=== PATIENT | male | born 1955 | race Caucasian/White ===

== ENCOUNTER 2017-05-18 21:10 | Observation (INO) | payer OTHER ==
[2017-05-18 21:48] VITALS: BMI 37.2
--- NOTE | 2017-05-18 21:52 | PDOC ---
History of Present Illness - History of Present Illness Initial Comments: 05/18/17 21:52 The patient is a 61 year old male, with a significant past medical history of hypertension (40 lisinopril and 20 hydrochlorothiazide), Afib s/p ablation, who presents to the emergency department with chest pain, shortness of breath, and associated neck and teeth pain all day today. He states he woke up this morning with the chest pain. He states he only has the chest pain when he takes a deep breath or with pressure. He states he was very gassy today and reports burping, but denies experiencing heartburn sensation. He states he did carry up some things from his basement yesterday and may have pulled something. He reports driving to and from [place] twice a month. He states he believes his last stress test was a year ago and was normal. Secondarily, he reports eating a lot yesterday for passover. He took 2 aspiring at noon and again at 6PM. He also reportedly took Tylenol which did not alleviate He denies headache and dizziness. He denies fever, chills, nausea, vomit, diarrhea and constipation. He denies dysuria, frequency, urgency and hematuria. Allergies: metoprolol Family Hx: PR (brother age 64) PCP: Dr. Jean Mail Order Clerk: Dr. Philip <Malina Gallegos - Last Filed: 05/18/17 21:52> - General History Source: Patient Exam Limitations: No Limitations <Lady Carrion - Last Filed: 05/19/17 00:29> - General Chief Complaint: Chest Pain Stated Complaint: CHEST PAIN Past History <Malina Gallegos - Last Filed: 05/18/17 21:52> - Past Medical History Anemia: No Asthma: No Cancer: No Cardiac Disorders: Yes (MILD PULMONIC STENOSIS) CVA: No COPD: No CHF: No Dementia: No Diabetes: No GI Disorders: Yes (DIVERTICULITIS, INFREQUENT GERD) Disorders: No HTN: Yes Hypercholesterolemia: No Liver Disease: No Seizures: No Thyroid Disease: No - Surgical History Abdominal Surgery: No Appendectomy: No Cardiac Surgery: Yes (CARDIAC ABLATION) Cholecystectomy: No Lung Surgery: No Neurologic Surgery: No Orthopedic Surgery: No - Suicide/Smoking/Psychosocial Hx Smoking Status: Yes Smoking History: Former smoker Have you smoked in the past 12 months: No Number of Cigarettes Smoked Daily: 0 If you are a former smoker, when did you quit?: 1989 Information on smoking cessation initiated: No Hx Alcohol Use: Yes (RARE) Drug/Substance Use Hx: No Substance Use Type: None Hx Substance Use Treatment: No <Lady Carrion - Last Filed: 05/19/17 00:29> - Past Medical History Allergies/Adverse Reactions: Allergies Allergy/AdvReac Type Severity Reaction Status Date / Time metoprolol AdvReac Intermediate sluggish Unverified 08/16/15 13:15 Home Medications: Ambulatory Orders Aspirin [Aspir 81] 162 mg PO ASDIR 01/12/14 Cholecalciferol (Vitamin D3) [Vitamin D3] 1,000 unit PO DAILY 05/18/17 Magnesium Oxide [Magnesium] 400 mg PO DAILY 05/18/17 [place]-3/Dha/Epa/Fish Oil [Fish Oil Conc 1,000 mg Softgel] 1,000 mg PO DAILY Potassium Chloride [K-Dur -] 10 meq PO DAILY 05/18/17 Vitamin E 05/18/17 Review of Systems - Review of Systems Able to Perform ROS?: Yes Comments:: 05/18/17 21:53 GENERAL/CONSTITUTIONAL: No fever or chills. No weakness. HEAD, EYES, EARS, NOSE AND THROAT: (+) teeth pain. No change in vision. No ear pain or discharge. No sore throat. CARDIOVASCULAR: (+) pleuritic chest pain and shortness of breath. RESPIRATORY: No cough, wheezing, or hemoptysis. GASTROINTESTINAL: No nausea, vomiting, diarrhea or constipation. GENITOURINARY: No dysuria, frequency, or change in urination. MUSCULOSKELETAL: (+) neck pain. No joint or muscle swelling or pain. No back pain. SKIN: No rash NEUROLOGIC: No headache, vertigo, loss of consciousness, or change in strength/ sensation. ENDOCRINE: No increased thirst. No abnormal weight change. HEMATOLOGIC/LYMPHATIC: No anemia, easy bleeding, or history of blood clots. ALLERGIC/IMMUNOLOGIC: No hives or skin allergy. <Malina Gallegos - Last Filed: 05/18/17 21:52> *Physical Exam - Vital Signs Last Vital Signs Temp Pulse Resp BP Pulse Ox 99.1 F 88 19 170/90 95 05/18/17 21:11 05/18/17 21:11 05/18/17 21:11 05/18/17 21:11 05/18/17 21:11 - Physical Exam Comments: 05/18/17 21:53 GENERAL: Awake, alert, and fully oriented, in no acute distress HEAD: No signs of trauma EYES: PERRLA, EOMI, sclera anicteric, conjunctiva clear ENT: Auricles normal inspection, hearing grossly normal, nares patent, oropharynx clear without exudates. Moist mucosa NECK: Normal ROM, supple, no lymphadenopathy, JVD, or masses LUNGS: Breath sounds equal, clear to auscultation bilaterally. No wheezes, and no crackles HEART: Regular rate and rhythm, normal S1 and S2, no murmurs, rubs or gallops CHEST: (+) reproducible chest wall tenderness on palpation ABDOMEN: Soft, nontender, normoactive bowel sounds. No guarding, no rebound. No masses EXTREMITIES: Normal range of motion, no edema. No clubbing or cyanosis. No cords, erythema, or tenderness NEUROLOGICAL: Cranial nerves II through XII grossly intact. Normal speech, normal gait SKIN: Warm, Dry, normal turgor, no rashes or lesions noted. <Malina Gallegos - Last Filed: 05/18/17 21:52> - Vital Signs Last Vital Signs Temp Pulse Resp BP Pulse Ox 99.1 F 88 19 170/90 95 05/18/17 21:11 05/18/17 21:11 05/18/17 21:11 05/18/17 21:11 05/18/17 21:11 <Lady Carrion - Last Filed: 05/19/17 00:29> Heart Score/ECG Review - ECG Intrepretation Comment:: 05/18/17 21:53 EKG was read by Dr. Carrion at 21:19 Impression: Normal sinus rhythm Vent rate: 88 bpm FL Interval: 184 ms QTc: 438 ms <Malina Gallegos - Last Filed: 05/18/17 21:52> #1 General ECG Interpretation: Sinus Rhythm, Normal Rate (88), Normal Intervals, No acute ischemic changes - ECG Intrepretation Rhythm: Regular Rhythm <Lady Carrion - Last Filed: 05/19/17 00:29> ED Treatment Course - LABORATORY CBC & Chemistry Diagram: 05/18/17 22:45 05/18/17 22:45 - RADIOLOGY Radiology Studies Ordered: Category Date Time Status CHEST PA & LAT [RAD] Stat Radiology 05/18/17 21:48 Ordered <Lady Carrion - Last Filed: 05/19/17 00:29> Medical Decision Making - Medical Decision Making 05/18/17 21:50 61 yo M h/o htn, afib s/p ablation here with chest pain, radiating to neck. plueritic in nature, no assoc sob, no leg swelling. no h/o pe or dvt. does drive to [place] twice monthly 6 hrs. family h/o brother mi in 60's, pt not a smoker. had a normal stress test reportedly one year ago. on exam awake alert normal cardiac and lung exams. ext no edema no calf tenderness. differential: chest wall pain, mi acs, pe, pneumonia, . plan cxr labs ekg. asa taken at home. pt will require obs. d dimer r/o pe. <Lady Carrion - Last Filed: 05/19/17 00:29> *DC/Admit/Observation/Transfer - Attestations Scribe Attestion: 05/18/17 21:53 Documentation prepared by Malina Gallegos, acting as medical technologist clinical for Lady Carrion MD, <Malina Gallegos - Last Filed: 05/18/17 21:52> - Discharge Dispostion Admit: Yes <Lady Carrion - Last Filed: 05/19/17 00:29> Diagnosis at time of Disposition: Chest pain - Discharge Dispostion Condition at time of disposition: Good - Referrals Referrals: Dom Jean MD [Primary Care Provider] - - Patient Instructions - Post Discharge Activity
[2017-05-18 23:03] LABS: BASO % 1.7 % (0-2.0); EOS % 1.2 % (0-4.5); HEMATOCRIT 48.1 % (35.4-49); HEMOGLOBIN 16.8 GM/dl (11.7-16.9); LYMPH % 23.1 % (8-40); MCH 29.5 pg (25.7-33.7); MCHC 34.9 g/dl (32.0-35.9); MEAN CELL VOLUME 84.5 fl (80-96); MEAN PLT VOLUME 7.9 fl (7.5-11.1); MONO % 9.2 % (3.8-10.2); NEUT % 64.8 % (42.8-82.8); PLATELET COUNT 215 K/MM3 (134-434); RBC 5.69 M/mm3 (4.00-5.60); RDW 12.3 % (11.9-15.9); WHITE BLOOD COUNT 7.6 K/mm3 (4.0-10.8)
[2017-05-18 23:11] LABS: INR 1.13 (0.82-1.09); PROTHROMBIN TIME (PATIENT) 12.6 SEC (10.2-13.0)
[2017-05-18 23:18] LABS: ALBUMIN 3.8 g/dl (3.5-5.0); ALK PHOS 51 U/L (32-92); ANION GAP 7 (8-16); BILIRUBIN,TOTAL 1.1 mg/dl (0.2-1.0); BLOOD UREA NITROGEN 14 mg/dl (7-18); CALCIUM 8.8 mg/dl (8.4-10.2); CHLORIDE 99 mmol/L (98-107); CO2 28 mmol/L (22-28); CREATININE 0.8 mg/dl (0.6-1.3); GLUCOSE,RANDOM 94 mg/dl (74-106); POTASSIUM 3.6 mmol/L (3.5-5.1); SGOT/AST 20 U/L (10-42); SGPT/ALT 26 U/L (10-40); SODIUM 134 mmol/L (136-145); TOT PROT 6.8 g/dl (6.4-8.3)
[2017-05-18 23:45] LABS: D-DIMER < 208 ng/ml (0-500)
[2017-05-19] MEDS ORDERED: HYDROCHLOROTHIAZIDE 25 MG TABLET (FP) PO ONE (01:46)
[2017-05-19] MEDS ORDERED: LISINOPRIL 20 MG TABLET (FP) PO ONE (01:46)
[2017-05-19] MEDS ORDERED: ACETAMINOPHEN 325 MG TABLET (FP) PO PRN ×2 (06:34→15:34)
[2017-05-19 06:47] VITALS: TEMP 99.4
[2017-05-19 09:42] LABS: BASO % 0.3 % (0-2.0); EOS % 0.3 % (0-4.5); HEMATOCRIT 45.8 % (35.4-49); HEMOGLOBIN 16.1 GM/dl (11.7-16.9); MCH 30.1 pg (25.7-33.7); MCHC 35.2 g/dl (32.0-35.9); MEAN CELL VOLUME 85.5 fl (80-96); MEAN PLT VOLUME 8.4 fl (7.5-11.1); MONO % 9.9 % (3.8-10.2); NEUT % 73.5 % (42.8-82.8); PLATELET COUNT 194 K/MM3 (134-434); RBC 5.36 M/mm3 (4.00-5.60); RDW 12.4 % (11.9-15.9); WHITE BLOOD COUNT 8.2 K/mm3 (4.0-10.8)
[2017-05-19] MEDS ORDERED: POTASSIUM CHLORIDE TABS 10 MEQ TABLET.ER (FP) PO SCH (10:00)
[2017-05-19] MEDS ORDERED: CHOLECALCIFEROL (VITAMIN D3) 1,000 UNIT TABLET (FP) PO SCH (10:00)
[2017-05-19] MEDS ORDERED: ASPIRIN 81 MG CHEWABLE TABLETS PO SCH (10:00)
[2017-05-19] MEDS ORDERED: MAGNESIUM OXIDE 400 MG TABLET (FP) PO SCH (10:00)
[2017-05-19 10:17] LABS: ANION GAP 8 (8-16); BLOOD UREA NITROGEN 12 mg/dl (7-18); CALCIUM 8.9 mg/dl (8.4-10.2); CHLORIDE 100 mmol/L (98-107); CO2 27 mmol/L (22-28); CREATININE 0.7 mg/dl (0.6-1.3); GLUCOSE,RANDOM 123 mg/dl (74-106); POTASSIUM 3.4 mmol/L (3.5-5.1); SODIUM 135 mmol/L (136-145)
[2017-05-19 10:23] LABS: MAGNESIUM 1.6 mg/dL (1.8-2.4); PHOSPHOROUS 2.8 mg/dl (2.5-4.6)
[2017-05-19 14:47] VITALS: BP 154/80; PULSE 82
[2017-05-19] MEDS ORDERED: MAGNESIUM SULF 50% (8.12 MEQ/2 ML-1 GM VIAL) IVPB ONE (15:13)
[2017-05-19] MEDS ORDERED: POTASSIUM CHLORIDE ORAL LIQUID 20 MEQ/15 ML PO ONE (15:13)
--- NOTE | 2017-05-19 15:23 | HP ---
Admitting History and Physical - Primary Care Physician PCP: Dom Jean - Admission Chief Complaint: chest pain History of Present Illness: This is a 61 year old male with pmhx a fibs s/p ablation 01/2016 off ac, htn and pulmonic stenosis since childhood. He presented today with chest pain to his left sternum radiating to his left neck, jaw and teeth for 1 day. Chest pain was associated with belching and indigestion, but no heart burn. The chest pain is primarily with deep inspiration. He also notes to carrying a heavy table up the stairs for passover dinner. Last stress with Dr. robbins was 1 year ago and normal. Tylenol helped him earlier, he is now requesting more. Currently, pain is not reproducible on exam, however he continues to have the pain with deep inspiration. Pt denies sob, abd pain, n/v, lower ext swelling, fever, chills. History Source: Patient Limitations to Obtaining History: No Limitations - Past Medical History Cardiovascular: Yes: AFIB, CAD, Other (pulmonic stenosis) - Smoking History Smoking history: Former smoker Have you smoked in the past 12 months: No Aproximately how many cigarettes per day: 0 If you are a former smoker, when did you quit?: 1989 - Alcohol/Substance Use Hx Alcohol Use: Yes (RARE) History of Substance Use: reports: None - Social History Usual Living Arrangement: Yes: Alone ADL: Independent Occupation: teacher History of Recent Travel: No Home Medications - Allergies Allergies/Adverse Reactions: Allergies Allergy/AdvReac Type Severity Reaction Status Date / Time metoprolol AdvReac Intermediate sluggish Unverified 08/16/15 13:15 - Home Medications Home Medications: Ambulatory Orders Aspirin [Aspir 81] 162 mg PO ASDIR 01/12/14 Cholecalciferol (Vitamin D3) [Vitamin D3] 1,000 unit PO DAILY 05/18/17 Magnesium Oxide [Magnesium] 400 mg PO DAILY 05/18/17 [place]-3/Dha/Epa/Fish Oil [Fish Oil Conc 1,000 mg Softgel] 1,000 mg PO DAILY Potassium Chloride [K-Dur -] 10 meq PO DAILY 05/18/17 Vitamin E 05/18/17 Review of Systems - Review of Systems Constitutional: reports: No Symptoms Eyes: reports: No Symptoms HENT: reports: Other (neck/ jaw pain) Neck: reports: No Symptoms Cardiovascular: reports: Chest Pain, Shortness of Breath Respiratory: reports: No Symptoms Gastrointestinal: reports: No Symptoms Genitourinary: reports: No Symptoms Musculoskeletal: reports: No Symptoms Integumentary: reports: No Symptoms Neurological: reports: No Symptoms Endocrine: reports: No Symptoms Hematology/Lymphatic: reports: No Symptoms Psychiatric: reports: No Symptoms Physical Examination Vital Signs: Vital Signs Temperature 99.4 F 05/19/17 14:00 Pulse Rate 82 05/19/17 14:00 Respiratory Rate 19 05/19/17 14:00 Blood Pressure 154/80 05/19/17 14:00 O2 Sat by Pulse Oximetry (%) 95 05/19/17 14:00 Constitutional: Yes: Calm Eyes: Yes: Conjunctiva Clear HENT: Yes: Atraumatic Neck: Yes: Supple Cardiovascular: Yes: Regular Rate and Rhythm, S1, S2 Respiratory: Yes: Regular, CTA Bilaterally Gastrointestinal: Yes: Normal Bowel Sounds, Soft Musculoskeletal: Yes: WNL Extremities: Yes: WNL Edema: No Peripheral Pulses WNL: Yes Neurological: Yes: Alert, Oriented, Cran Nerves II-XII Intact Psychiatric: Yes: Alert, Oriented Labs: CBC, BMP 05/19/17 06:00 05/19/17 06:00 Imaging - Results X-ray: Image Reviewed (my read no effusions) EKG: Report Reviewed Problem List - Problems (1) Chest pain Code(s): R07.9 - CHEST PAIN, UNSPECIFIED Assessment/Plan Assessment: 61 year old male admitted with chest pain Plan: 1. Chest pain - Serial trops x3 negative - EKG NSR - Cardiology consulted 2. HTN - Continue current meds (HCTZ, lisinopril) 3. Electrolytes - Hypokalemia: replete potassium 30meq today - Hypomagnesemia: 2gm IV now 4. s/p ablation 01/2016 - In sinus - No ac Visit type - Emergency Visit Emergency Visit: Yes ED Registration Date: 05/19/17 Care time: The patient presented to the Emergency Department on the above date and was hospitalized for further evaluation of their emergent condition. - New Patient This patient is new to me today: Yes Date on this admission: 05/19/17 - Critical Care Critical Care patient: No Hospitalist Screening - Colonoscopy Questionnaire Colonoscopy Questionnaire: Colonoscopy Questionnaire - Patient: 50 - 75 years old and never had a screening colonoscopy: Unknown History of colon or rectal polyps, or CA: Unknown History of IBD, Crohn's disease or UC: Unknown History of abdominal radiation therapy as a child: Unknown - Relative: 1 with colon or rectal CA, or polyps at age 60 or younger: Unknown Colon or rectal CA diagnosed at age 45 or younger: Unknown Multiple relatives with colon or rectal CA: Unknown - Outcome: Screening Result: Negative Screen
--- NOTE | 2017-05-19 16:01 | CON.CARD ---
Cardiology Consult (text) - Consultation Consultation Note: 61 year old male with pmhx a fibs s/p ablation 01/2016 off ac, htn and pulmonic stenosis since childhood. He presented today with chest pain to his left sternum radiating to his left neck, jaw and teeth for 1 day. Chest pain was associated with belching and indigestion, but no heart burn. The chest pain is primarily with deep inspiration. He also notes to carrying a heavy table up the stairs for passover dinner. Last stress with Dr. robbins was 1 year ago and normal. Tylenol helped him earlier, he is now requesting more. Currently, pain is not reproducible on exam, however he continues to have the pain with deep inspiration. Pt denies sob, abd pain, n/v, lower ext swelling, fever, chills. History Source: Patient Limitations to Obtaining History: No Limitations - Past Medical History Cardiovascular: Yes: AFIB, CAD, Other (pulmonic stenosis) - Smoking History Smoking history: Former smoker Ambulatory Orders Aspirin [Aspir 81] 162 mg PO ASDIR 01/12/14 Cholecalciferol (Vitamin D3) [Vitamin D3] 1,000 unit PO DAILY 05/18/17 Magnesium Oxide [Magnesium] 400 mg PO DAILY 05/18/17 [place]-3/Dha/Epa/Fish Oil [Fish Oil Conc 1,000 mg Softgel] 1,000 mg PO DAILY Potassium Chloride [K-Dur -] 10 meq PO DAILY 05/18/17 Vitamin E 05/18/17 Current Medications Acetaminophen (Tylenol -) 650 mg PO Q4H PRN PRN Reason: PAIN OR FEVER Last Admin: 05/19/17 15:45 Dose: 650 mg Aspirin (Asa -) 81 mg PO DAILY [facility] Last Admin: 05/19/17 09:48 Dose: 81 mg Cholecalciferol (Vitamin D3 -) 1,000 unit PO DAILY [facility] Last Admin: 05/19/17 09:48 Dose: 1,000 unit Hydrochlorothiazide (Hctz -) 25 mg PO HS [facility]ACQU[facility]INE Lisinopril (Prinivil) 40 mg PO HS [facility]AC[facility] Potassium Chloride (K-Dur -) 10 meq PO DAILY [facility] Last Admin: 05/19/17 09:48 Dose: 10 meq Vital Signs - 24 hr 05/18/17 05/18/17 05/19/17 21:11 21:40 01:40 Temperature 99.1 F 100.4 F H Pulse Rate 88 92 H Pulse Rate [ 87 Apical] Respiratory 19 18 18 Rate Blood Pressure 170/90 195/86 Blood Pressure 171/91 [Right Arm] O2 Sat by Pulse 95 96 95 Oximetry (%) 05/19/17 05/19/17 05/19/17 06:00 09:46 14:00 Temperature 99.4 F 99.4 F 99.4 F Pulse Rate 89 84 82 Pulse Rate [ Apical] Respiratory 19 19 19 Rate Blood Pressure 159/59 114/71 154/80 Blood Pressure [Right Arm] O2 Sat by Pulse 92 L 95 Oximetry (%) Intake & Output 05/17/17 05/18/17 05/19/17 05/20/17 07:59 07:59 07:59 07:59 Weight 303 lb 0.7 oz CBC, BMP 05/19/17 06:00 05/19/17 06:00
[2017-05-19] MEDS ORDERED: LISINOPRIL 20 MG TABLET (FP) PO SCH (22:00)
[2017-05-19] MEDS ORDERED: COLCHICINE 0.6 MG TABLET (FP) PO SCH (22:00)
[2017-05-19] MEDS ORDERED: IBUPROFEN 400 MG TABLET (FP) PO SCH (22:00)
[2017-05-19] MEDS ORDERED: HYDROCHLOROTHIAZIDE 25 MG TABLET (FP) PO SCH (22:00)
--- NOTE | 2017-05-19 22:21 | DS ---
Physical Exam: SUBJECTIVE: Patient seen and examined OBJECTIVE: Vital Signs Period Temp Pulse Resp BP Sys/Goldsmith Pulse Ox Last 24 Hr 99.4 F-100.4 F 82-92 18-19 114-195/59-86 92-95 PHYSICAL EXAM GENERAL: The patient is awake, alert, and fully oriented, in no acute distress. HEAD: Normal with no signs of trauma. EYES: PERRL, extraocular movements intact, sclera anicteric, conjunctiva clear. ENT: Ears normal, nares patent, oropharynx clear without exudates, moist mucous membranes. NECK: Trachea midline, full range of motion, supple. LUNGS: Breath sounds equal, clear to auscultation bilaterally, no wheezes, no crackles, no accessory muscle use. HEART: Regular rate and rhythm, S1, S2 without murmur, rub or gallop. ABDOMEN: Soft, nontender, nondistended, normoactive bowel sounds, no guarding, no rebound, no hepatosplenomegaly, no masses. EXTREMITIES: 2+ pulses, warm, well-perfused, no edema. NEUROLOGICAL: Cranial nerves II through XII grossly intact. Normal speech, gait not observed. PSYCH: Normal mood, normal affect. SKIN: Warm, dry, normal turgor, no rashes or lesions noted. LABS Laboratory Results - last 24 hr 05/18/17 05/18/17 05/18/17 22:45 22:45 22:45 WBC 7.6 D RBC 5.69 H Hgb 16.8 Hct 48.1 MCV 84.5 MCH 29.5 MCHC 34.9 RDW 12.3 Plt Count 215 MPV 7.9 Neutrophils % 64.8 D Lymphocytes % 23.1 D Monocytes % 9.2 Eosinophils % 1.2 Basophils % 1.7 ESR PT with INR INR D-Dimer Sodium 134 L Potassium 3.6 Chloride 99 Carbon Dioxide 28 Anion Gap 7 L BUN 14 Creatinine 0.8 Creat Clearance w eGFR > 60 Random Glucose 94 Calcium 8.8 Phosphorus Magnesium Total Bilirubin 1.1 H AST 20 ALT 26 Alkaline Phosphatase 51 Creatine Kinase 65 Troponin I < 0.03 Total Protein 6.8 Albumin 3.8 Triglycerides Cholesterol Total LDL Cholesterol HDL Cholesterol 05/18/17 05/19/17 05/19/17 22:45 06:00 06:00 WBC 8.2 RBC 5.36 Hgb 16.1 Hct 45.8 MCV 85.5 MCH 30.1 MCHC 35.2 RDW 12.4 Plt Count 194 MPV 8.4 Neutrophils % 73.5 Lymphocytes % 16.0 D Monocytes % 9.9 Eosinophils % 0.3 Basophils % 0.3 ESR PT with INR 12.6 INR 1.13 D-Dimer < 208 Sodium 135 L Potassium 3.4 L Chloride 100 Carbon Dioxide 27 Anion Gap 8 BUN 12 Creatinine 0.7 Creat Clearance w eGFR Random Glucose 123 H D Calcium 8.9 Phosphorus Magnesium Total Bilirubin AST ALT Alkaline Phosphatase Creatine Kinase Troponin I Total Protein Albumin Triglycerides Cholesterol Total LDL Cholesterol HDL Cholesterol 05/19/17 05/19/17 05/19/17 06:00 06:00 13:00 WBC RBC Hgb Hct MCV MCH MCHC RDW Plt Count MPV Neutrophils % Lymphocytes % Monocytes % Eosinophils % Basophils % ESR PT with INR INR D-Dimer Sodium Potassium Chloride Carbon Dioxide Anion Gap BUN Creatinine Creat Clearance w eGFR Random Glucose Calcium Phosphorus 2.8 Magnesium 1.6 L Total Bilirubin AST ALT Alkaline Phosphatase Creatine Kinase Troponin I < 0.03 < 0.03 Total Protein Albumin Triglycerides 68 Cholesterol 167 Total LDL Cholesterol 115 HDL Cholesterol 38 05/19/17 17:00 WBC RBC Hgb Hct MCV MCH MCHC RDW Plt Count MPV Neutrophils % Lymphocytes % Monocytes % Eosinophils % Basophils % ESR 3 PT with INR INR D-Dimer Sodium Potassium Chloride Carbon Dioxide Anion Gap BUN Creatinine Creat Clearance w eGFR Random Glucose Calcium Phosphorus Magnesium Total Bilirubin AST ALT Alkaline Phosphatase Creatine Kinase Troponin I Total Protein Albumin Triglycerides Cholesterol Total LDL Cholesterol HDL Cholesterol HOSPITAL COURSE: Date of Admission:05/19/17 Date of Discharge: 05/19/17 Discharge Summary Reason For Visit: CHEST PAIN Current Active Problems Chest pain (Acute) Condition: Stable - Instructions Diet, Activity, Other Instructions: Please return to the ED for any new, persistent, or worsening symptoms. Follow up with you PCP in 1 week Continue home meds as directed Take ibuprofen and cochicine as directed for 1 month with protonix to prevent ulcer. Follow up with Dr. Philip next week for echo and stress test Referrals: Dom Jean MD [Primary Care Provider] - Tera Philip MD [Staff Physician] - Disposition: HOME - Home Medications Comprehensive Discharge Medication List: Ambulatory Orders Aspirin [Aspir 81] 162 mg PO ASDIR 01/12/14 Cholecalciferol (Vitamin D3) [Vitamin D3] 1,000 unit PO DAILY 05/18/17 Magnesium Oxide [Magnesium] 400 mg PO DAILY 05/18/17 [place]-3/Dha/Epa/Fish Oil [Fish Oil Conc 1,000 mg Softgel] 1,000 mg PO DAILY Potassium Chloride [K-Dur -] 10 meq PO DAILY 05/18/17 Vitamin E 05/18/17 Colchicine 0.6 mg PO BID #60 tablet 05/19/17 Ibuprofen 800 mg PO TID #60 tablet 05/19/17 Pantoprazole Sodium [Protonix] 40 mg PO DAILY #30 tablet. 05/19/17 Problem List - Problems (1) Chest pain Code(s): R07.9 - CHEST PAIN, UNSPECIFIED
--- NOTE | 2017-05-20 11:23 | EKG ---
Test Reason : Blood Pressure : / mmHG Vent. Rate : 088 BPM Atrial Rate : 088 BPM P-R Int : 184 ms QRS Dur : 092 ms QT Int : 362 ms P-R-T Axes : 040 007 033 degrees QTc Int : 438 ms NORMAL SINUS RHYTHM NORMAL ECG NO PREVIOUS ECGS AVAILABLE Confirmed by REMINGTON ACOSTA MD ([id number]) on 05/20/2017 11:23:23 AM Referred By: NELLA Confirmed By:REMINGTON ACOSTA MD
== END 2017-05-19 18:50 | disposition home or self-care (01) ==
LOC: FER 21:10 → FM/S 05-19 00:55
PROVIDERS: ADMIT Internal Medicine; ATTEND Nurse Practitioner Family
PROC: 3E033GC Introduction of Other Therapeutic Substance into Peripheral Vein, Percutaneous Approach (ICD-10-PCS; principal; 2017-05-19)
DX: R07.9 Chest pain, unspecified (principal); I10 Essential (primary) hypertension; I48.91 Unspecified atrial fibrillation; Z87.891 Personal history of nicotine dependence; Z86.79 Personal history of other diseases of the circulatory system; Z79.82 Long term (current) use of aspirin; E87.6 Hypokalemia; E83.42 Hypomagnesemia
CPT/HCPCS: 36415; 71046-TC-FY; 80048; 80053; 80061; 82550; 83036; 83735; 84100; 84484; 85025; 85379; 85610; 85651; 86140; 93005; 99285-25; G0378

== ENCOUNTER 2023-07-01 10:44 | Day surgery (SDC) | payer OTHER, MEDICARE ==
[2023-06-18 14:36] VITALS: BMI 38.5
[2023-07-01] MEDS ORDERED: PROPOFOL 120 ML ONE (11:35)
[2023-07-01 12:16] VITALS: PULSE 63; RESP 16; TEMP 97.3
[2023-07-01 12:33] VITALS: BP 112/75
== END 2023-07-01 12:40 | disposition home or self-care (01) ==
LOC: FASU-ENDO 10:44
PROVIDERS: ATTEND Internal Medicine Gastroenterology
PROC: 0DBH8ZX Excision of Cecum, Via Natural or Artificial Opening Endoscopic, Diagnostic (ICD-10-PCS; 2023-07-01)
PROC: 0D5H8ZZ Destruction of Cecum, Via Natural or Artificial Opening Endoscopic (ICD-10-PCS; 2023-07-01)
PROC: 0DBK8ZX Excision of Ascending Colon, Via Natural or Artificial Opening Endoscopic, Diagnostic (ICD-10-PCS; principal; 2023-07-01 11:36)
DX: Z12.11 Encounter for screening for malignant neoplasm of colon (principal); D12.0 Benign neoplasm of cecum; D12.2 Benign neoplasm of ascending colon; K57.30 Diverticulosis of large intestine without perforation or abscess without bleeding; Q27.33 Arteriovenous malformation of digestive system vessel
CPT/HCPCS: 88305-TC